=== PATIENT | female | born 1995 | race Caucasian/White ===

== ENCOUNTER → 2016-12-24 | Outpatient (CLI) | payer OTHER | LOC: FIMAGING 16:09 | PROVIDERS: ATTEND Orthopaedic Surgery Foot and Ankle Surgery | DX: M76.821 Posterior tibial tendinitis, right leg (principal); R60.9 Edema, unspecified ==

== ENCOUNTER → 2017-01-05 | Outpatient (CLI) | payer OTHER | LOC: FIMAGING 11:29 | PROVIDERS: ATTEND Orthopaedic Surgery Foot and Ankle Surgery | DX: Q66.89 Other specified congenital deformities of feet (principal) ==